=== PATIENT | male | born 1990 | race Hispanic/Latino ===

== ENCOUNTER 2018-08-21 20:35 | Emergency (ER) | payer SELFPAY ==
[2018-08-21 21:03] VITALS: TEMP 98
--- NOTE | 2018-08-22 00:41 | ED PDOC ---
HPI: Male Pain Time Seen by Provider: 08/21/18 22:41 Chief Complaint (Nursing): Groin Pain Chief Complaint (Provider): groin pain History Per: Patient History/Exam Limitations: no limitations Additional Complaint(s): 28 y/o M with no significant PMH who presents for Right groin pain x 3 days. Pt states that he began having sudden onset Right groin pain 3 days ago after work. 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 HE has been taking Tylenol with minimal relief but has not taken anything today. He denies fever, chills, night sweats. Denies hx of STDs, abdominal pain, dysuria, penile discharge. Past Medical History Reviewed: Historical Data, Nursing Documentation, Vital Signs Vital Signs: Last Vital Signs Temp 98 F 08/21/18 21:02 Pulse 80 08/21/18 21:02 Resp 16 08/21/18 21:02 BP 117/74 08/21/18 21:02 Pulse Ox 98 08/21/18 21:02 - Medical History PMH: Asthma - Family History Family History: States: Unknown Family Hx - Home Medications Home Medications: Ambulatory Orders Medication Instructions Recorded Ibuprofen [Motrin Tab] 800 mg PO Q6 PRN 7 Days tab 08/22/18 - Allergies Allergies/Adverse Reactions: Allergies Allergy/AdvReac Type Severity Reaction Status Date / Time No Known Allergies Allergy Verified 08/21/18 21:02 Review of Systems Constitutional: Negative for: Fever, Chills Genitourinary Male: Negative for: Dysuria, Frequency, Penile Discharge Skin: Negative for: Rash Physical Exam - Reviewed Nursing Documentation Reviewed: Yes Vital Signs Reviewed: Yes - Physical Exam Appears: Positive for: Uncomfortable Male Genital Exam: Positive for: other (Three firm inguinal lymph nodes on Right, + tenderness. No fluctuance. ). Negative for: normal genitalia (Right side of penis with abrasion (pt and girlfriend state from rough sex). ), erythema, hernia mass, scrotum tenderness (R), scrotum tenderness (L), testicular tenderness (R), testicular tenderness (L), urethral discharge Lymphatic: Positive for: Adenopathy (Right inguinal as above) Neurological/Psych: Positive for: Awake, Alert - ECG O2 Sat by Pulse Oximetry: 98 Medical Decision Making Medical Decision Makin US Abd Findings: Multiple enlarged necrotic lymph nodes are noted in the right inguinal region measuring 2.3, 1.6 and 1.7 cm respectively. Impression: Multiple large necrotic lymph nodes are noted in the right inguinal region. Pt informed of ultrasound results and possibility of infectious vs inflammatory vs malignancy. Pt instructed that he will need to follow up with surgeon to have lymph nodes biopsied and offered STD testing including HIV and syphilis. Pt prefers to have everything done as an outpatient. Importance of follow up emphasized and patient further advised to refrain from sexual activity until symptoms improve and work up has been done. Disposition - Clinical Impression Clinical Impression: Inguinal adenopathy - Patient ED Disposition Is Patient to be Admitted: No Counseled Patient/Family Regarding: Studies Performed, Diagnosis, Need For Followup - Disposition Referrals: [facility] [Outside] Ap Ugalde MD [Staff Provider] - Disposition: Routine/Home Disposition Time: 01:04 Condition: STABLE Additional Instructions: Follow up with surgeon for biopsy of lymph nodes. Continue to take Tylenol or Ibuprofen for pain. Follow up with primary care doctor for further work up including STD testing. Prescriptions: Ibuprofen [Motrin Tab] 800 mg PO Q6 PRN 7 Days tab PRN Reason: Pain, Moderate (4-7) Forms: [facility] ED School/Work Excuse Print Language: TURKMEN
[2018-08-22 01:09] VITALS: BP 122/78; PULSE 78; RESP 18
[2018-08-22 01:31] VITALS: O2SAT 98
--- NOTE | 2018-08-22 16:03 | US ---
Date of service: 08/21/2018 HISTORY: R/O R groin hernia, vascular abnormal, COMPARISON: None available. TECHNIQUE: Real-time sonographic images in the region of interest, right groin FINDINGS: Multiple enlarged bilateral partially cystic structures with vascular echogenic components in the right inguinal canal favored to represent necrotic lymph nodes measuring approximately 2.3 cm, 1.6 cm, and 1.9 cm in maximum dimension. IMPRESSION: Findings as above favored to represent necrotic lymph nodes in the right inguinal region. Preliminary impression was provided by [employer].
== END 2018-08-22 01:07 | disposition home or self-care (01) ==
LOC: H.ER 20:35
DX: L04.1 Acute lymphadenitis of trunk (principal)